=== PATIENT | female | born 1955 | race Caucasian/White ===

== ENCOUNTER → 2020-10-29 | Outpatient (CLI) | payer MEDICARE, BC ==
[~2020-10-29] VITALS: Ht 165.1 cm; Wt 111.1 kg
== END ==
LOC: OPSV 11:46
DX: N39.0 Urinary tract infection, site not specified (principal)
CPT/HCPCS: 96372; J1335

== ENCOUNTER → 2020-10-30 | Outpatient (CLI) | payer MEDICARE, BC ==
[~2020-10-30] VITALS: Ht 165.1 cm; Wt 111.1 kg
== END ==
LOC: OPSV 08:55
DX: N39.0 Urinary tract infection, site not specified (principal)
CPT/HCPCS: 96372; J1335

== ENCOUNTER → 2020-10-31 | Outpatient (CLI) | payer MEDICARE, BC ==
[~2020-10-31] VITALS: Ht 165.1 cm; Wt 111.1 kg
== END ==
LOC: OPSV 08:45
DX: N39.0 Urinary tract infection, site not specified (principal)
CPT/HCPCS: 96372; J1335

== ENCOUNTER → 2020-11-01 | Outpatient (CLI) | payer MEDICARE, BC ==
[~2020-11-01] VITALS: Ht 165.1 cm; Wt 111.1 kg
== END ==
LOC: OPSV 09:00
DX: N39.0 Urinary tract infection, site not specified (principal)
CPT/HCPCS: 96372; J1335

== ENCOUNTER → 2020-11-02 | Outpatient (CLI) | payer MEDICARE, BC ==
[~2020-11-02] VITALS: Ht 165.1 cm; Wt 111.1 kg
== END ==
LOC: OPSV 07:11
DX: N39.0 Urinary tract infection, site not specified (principal)
CPT/HCPCS: 96372; J1335

== ENCOUNTER → 2020-11-03 | Outpatient (CLI) | payer MEDICARE, BC ==
[~2020-11-03] VITALS: Ht 165.1 cm; Wt 111.1 kg
== END ==
LOC: OPSV 07:30
DX: N39.0 Urinary tract infection, site not specified (principal)
CPT/HCPCS: 96372; J1335

== ENCOUNTER → 2020-11-04 | Outpatient (CLI) | payer MEDICARE, BC ==
[~2020-11-04] VITALS: Ht 165.1 cm; Wt 111.1 kg
== END ==
LOC: OPSV 08:43
DX: N39.0 Urinary tract infection, site not specified (principal)
CPT/HCPCS: 96372; J1335

== ENCOUNTER → 2020-11-05 | Outpatient (CLI) | payer MEDICARE, BC ==
[~2020-11-05] VITALS: Ht 165.1 cm; Wt 111.1 kg
== END ==
LOC: OPSV 08:06
DX: N39.0 Urinary tract infection, site not specified (principal)
CPT/HCPCS: 96372

== ENCOUNTER → 2020-11-06 | Outpatient (CLI) | payer MEDICARE, BC | LOC: OPSV 08:25 | DX: N39.0 Urinary tract infection, site not specified (principal) | CPT/HCPCS: 96372; J1335 ==

== ENCOUNTER → 2020-11-07 | Outpatient (CLI) | payer MEDICARE ==
[~2020-11-07] VITALS: Ht 165.1 cm; Wt 111.1 kg
== END ==
LOC: OPSV 08:19
DX: N39.0 Urinary tract infection, site not specified (principal)
CPT/HCPCS: 96372; J1335

== ENCOUNTER → 2020-11-08 | Outpatient (CLI) | payer MEDICARE, BC ==
[~2020-11-08] VITALS: Ht 165.1 cm; Wt 111.1 kg
== END ==
LOC: OPSV 07:48
DX: N39.0 Urinary tract infection, site not specified (principal); Z88.2 Allergy status to sulfonamides; Z88.1 Allergy status to other antibiotic agents
CPT/HCPCS: 96372; J1335

== ENCOUNTER → 2020-11-09 | Outpatient (CLI) | payer MEDICARE ==
[~2020-11-09] VITALS: Ht 165.1 cm; Wt 111.1 kg
== END ==
LOC: OPSV 07:32
DX: N39.0 Urinary tract infection, site not specified (principal)
CPT/HCPCS: 96372; J1335

== ENCOUNTER → 2020-11-10 | Outpatient (CLI) | payer MEDICARE, BC ==
[~2020-11-10] VITALS: Ht 165.1 cm; Wt 111.1 kg
== END ==
LOC: OPSV 07:24
DX: N39.0 Urinary tract infection, site not specified (principal)
CPT/HCPCS: 96372; J1335

== ENCOUNTER → 2020-11-11 | Outpatient (CLI) | payer MEDICARE, BC ==
[~2020-11-11] VITALS: Ht 165.1 cm; Wt 111.1 kg
== END ==
LOC: OPSV 07:24
DX: N39.0 Urinary tract infection, site not specified (principal)
CPT/HCPCS: 96372; J1335

== ENCOUNTER → 2020-11-19 | Outpatient (CLI) | payer MEDICARE | LOC: KOH-I 14:37 | DX: N20.0 Calculus of kidney (principal) | CPT/HCPCS: 74176 ==